=== PATIENT | male | born 1935 | race Caucasian/White ===

== ENCOUNTER 2017-01-18 06:58 | Emergency (ER) | payer MEDICARE ==
[2017-01-18 07:45] LABS: #Basophils 0.1 thou/uL (0.0-0.2); #Eosinphils 0.2 thou/uL (0.0-0.7); #Lymphocytes 1.5 thou/uL (1.20-3.40); #Monocytes 0.6 thou/uL (0.11-0.59); %Basophils 0.9 % (0.0-1.0); %Eosinophils 3.4 % (0.0-10.0); %Lymphocytes 23.1 % (21.0-51.0); %Monocytes 9.9 % (0.0-10.0); Hematocrit 42.5 % (42.0-52.0); Mean Platelet Volume 6.5 fL (7.4-10.4); Red Blood Cell (RBC) Count 4.21 mill/uL (4.70-6.10); White Blood Cell (WBC) Count 6.4 thou/uL (4.8-10.8)
--- NOTE | 2017-01-18 08:05 | RAD ---
PORTABLE CHEST 1 VIEW: DATE: 01/18/17. TIME: 7:05 a.m. HISTORY: Fall, chest pain. FINDINGS: Comparison is made with the exam of 06/03/16. The heart size is normal. The aorta is tortuous. The lungs are expanded without focal areas of con solidation, pneumothorax, or pleural effusions. IMPRESSION: No radiographic evidence of acute cardiopulmonary process. POS: [facility]
[2017-01-18 08:08] LABS: ALT (SGPT) 17 U/L (8-55); AST (SGOT) 21 U/L (5-34); Alkaline Phosphatase 115 U/L (40-150); Anion Gap 12 mmol/L (10-20); BUN (Urea Nitrogen) 10 mg/dL (8.4-25.7); Bilirubin, Total 0.4 mg/dL (0.2-1.2); Calc. Creatinine Clearance 0 mL/min (70-130); Calcium 9.3 mg/dL (7.8-10.44); Carbon Dioxide 25 mmol/L (23-31); Chloride 106 mmol/L (98-107); Estimated GFR-MDRD Greater than 90; Protein, Total 6.3 g/dL (5.8-8.1)
--- NOTE | 2017-01-18 08:19 | CT ---
CT OF CERVICAL SPINE PERFORMED WITHOUT CONTRAST ENHANCEMENT: History: Neck pain status post fall. FINDINGS: The vertebral bodies are normal in height. There is a retrolisthesis of C3 on C4 of approximately 3-4 mm. There are degenerative facet changes noted but the facets do appear to be in normal alignment. T here is no CT evidence for fracture. Lung apices show some chronic appearing change. IMPRESSION: No CT evidence of fracture of the cervical spine. POS: [facility]
--- NOTE | 2017-01-18 08:21 | CT ---
CT HEAD WITHOUT CONTRAST: Date: 01-18-17 Comparison: 06-03-16 History: Altered mental status. Fall. Left frontal laceration. Technique: Serial axial CT imaging obtained at 5 mm intervals from vertex through skull base without contrast. FINDINGS: There is a left frontal scalp laceration extending to the outer table of the calvarium. The imaged paranasal sinuses and mastoid air cells are grossly unremarkable. There is moderate diffus e cerebral volume loss with associated prominence of the CSF containing spaces. No displaced calvaria l fracture, intracranial hemorrhage, midline shift or mass effect. IMPRESSION: Prominent left frontal scalp laceration extending to the calvarium. No associated fracture or intracr anial hemorrhage seen. POS: [facility]
--- NOTE | 2017-01-18 08:21 | RAD ---
AP PELVIS: HISTORY: Fall. 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 The pelvic ring is intact witho ut evidence of fracture. IMPRESSION: No evidence of fracture. POS: [facility]
[2017-01-18] MEDS ORDERED: Lidocaine 1% w/Epinephrine 1:200K 30 ML VIAL ONE (08:31)
[2017-01-18] MEDS ORDERED: Bacitracin Zinc 1 Packet ONE (10:27)
== END 2017-01-18 10:39 | disposition home or self-care (01) ==
LOC: ERS 06:58
DX: S01.81XA Laceration without foreign body of other part of head, initial encounter (principal); S01.01XA Laceration without foreign body of scalp, initial encounter; S40.212A Abrasion of left shoulder, initial encounter; G30.9 Alzheimer's disease, unspecified; F02.80 Dementia in other diseases classified elsewhere, unspecified severity, without behavioral disturbance, psychotic disturbance, mood disturbance, and anxiety; E78.5 Hyperlipidemia, unspecified; I10 Essential (primary) hypertension; Z79.899 Other long term (current) drug therapy; W19.XXXA Unspecified fall, initial encounter; Y92.129 Unspecified place in nursing home as the place of occurrence of the external cause
CPT/HCPCS: 12032; 36415; 70450; 71010; 72125; 72170; 80053; 85025; 93005